=== PATIENT | female | born 1955 | race Caucasian/White ===

== ENCOUNTER → 2020-02-01 07:21 | Outpatient (CLI) | payer BC, SELFPAY ==
--- NOTE | ~2020-02-01 | MM_ITS ---
EXAMINATION: MM screening [facility] BI w dylan HISTORY: Screening mammogram TECHNIQUE: Craniocaudal and mediolateral oblique 3-D tomosynthesis images were obtained and synthetic 2-D images were generated. CAD analysis was submitted and interpreted. COMPARISON: 12/13/2018, 12/09/2017, 11/25/2016 BREAST PARENCHYMAL COMPOSITION: There are scattered areas of fibroglandular density. FINDINGS: There is no evidence of suspicious mass, calcification, or architectural distortion to sugg est malignancy in either breast. There has been no suspicious interval change. IMPRESSION: 1. No mammographic evidence of malignancy. 2. Recommend routine screening mammography in one year. BI-RADS Category 1: Negative Reviewed, dictated and finalized at location A. [employer]ATCH [employer]ER
== END ==
PROVIDERS: PCP Family Medicine; Visit Provider Obstetrics & Gynecology
DX: Z12.31 Encounter for screening mammogram for malignant neoplasm of breast (principal)
CPT/HCPCS: 77063; 77067

== ENCOUNTER 2020-10-03 13:00 | Emergency (ER) | payer BC, SELFPAY ==
--- NOTE | 2020-10-03 13:07 | ED.SKABFB ---
HPI - Skin/Abscess/Foreign Bdy General Chief complaint: Skin/Abscess/Foreign Body Stated complaint: poison chip Time Seen by Provider: 10/03/20 13:07 Source: patient and RN notes reviewed History of Present Illness HPI narrative: Patient 65-year-old female who presents the urgent care with complaints of poison chip to the left arm and neck. Patient states that she was doing yard work on Tuesday and it has been spreading since then. Patient has been using hydrocortisone and Benadryl without much relief. No other acute complaints. No acute distress noted. Patient aware of the plan of care. Some parts of this dictation were generated by voice recognition software and may contain typographical and/or grammatical inaccuracies. Related Data Allergies Allergy/AdvReac Type Severity Reaction Status Date / Time No Known Allergies Allergy Unverified 08/24/16 11:54 Review of Systems Review of Systems: Narrative: CONSTITUTIONAL: Denies fever, chills, or sweats. EYES: Denies visual changes, redness, or discharge. ENT: Denies rhinorrhea, congestion, sore throat, or otalgia. CARDIOVASCULAR: Denies chest pain, palpitations, or edema. RESPIRATORY: Denies cough or dyspnea. GASTROINTESTINAL: Denies abdominal pain, nausea, vomiting, or diarrhea. GENITOURINARY: Denies dysuria or hematuria. SKIN: Reports of itchy pruritic dermatitis to the left arm, right and left neck, and right face MUSCULOSKELETAL: Denies back pain, joint pain, or myalgia. NEUROLOGIC: Denies headache, numbness, or weakness. All other systems reviewed are negative, except as documented in HPI. PMFSH Comments At the time of my signature, I reviewed and agree with the nursing past medical, surgical, social, and family history. There is no relevant family history pertinent to the patient complaint. Exam Narrative: Exam Narrative: GENERAL: This is a well-nourished, well-developed patient, in no apparent distress. HEAD: normocephalic, atraumatic. EYES: PERRL. Sclera clear/white. Vision is grossly intact. EARS: External ears normal NOSE: External nose normal with no obvious nasal discharge, nares without redness, no rhinorrhea. THROAT: Mucous membranes moist NECK: Neck supple CARDIOVASCULAR: Regular rate and rhythm without murmurs, gallops, or rubs. RESPIRATORY: Clear to auscultation. Breath sounds equal bilaterally. No wheezes, rales, or rhonchi. SKIN: Pruritic vesicular erythemic dermatitis noted to the antecubital fossa of the left arm, lower left arm, right and left side of the neck, and right side of the face NEURO: awake, alert, and oriented to person, place and time. There were no obvious focal neurologic abnormalities. EXTREMITIES: No clubbing, cyanosis, or edema. Course Vital Signs Vital signs: Vital Signs Temperature 98.1 F 10/03/20 13:10 Pulse Rate 69 10/03/20 13:10 Respiratory Rate 18 10/03/20 13:10 Blood Pressure 132/68 10/03/20 13:10 Pulse Oximetry 99 10/03/20 13:10 Temperature 98.1 F 10/03/20 13:10 Pulse Rate 69 10/03/20 13:10 Respiratory Rate 18 10/03/20 13:10 Blood Pressure 132/68 10/03/20 13:10 Pulse Oximetry 99 10/03/20 13:10 Reviewed MDM - Skin/Abscess/Foreign Bdy MDM Narrative Medical decision making narrative: Advised the patient to complete oral steroid regimen as prescribed. Be sure to eat and drink with the medication. Use triamcinolone cream to the affected areas avoiding the groin, underarms and near the eyes. Continue to use the [id number] Benadryl as needed for itching. Obtain [id number] TecNu scrub daily in the shower. Follow-up with your PCP within 2 to 5 days or for worsening symptoms or failure to improve. Differential Diagnosis Differential diagnosis: Likely abscess of skin or subcutaneous tissue, cellulitis, eczema, insect bites and contact dermatitis Discharge Plan Discharge Clinical Impression: Rhus dermatitis Patient Disposition: Home, Self-Care Condition: Stable Instructio
[2020-10-03 13:10] VITALS: BP 132/68; PULSE 69; RESP 18; TEMP 36.7; O2SAT 99
[2020-10-03 13:44] VITALS: BP 132/68; PULSE 69; RESP 18; TEMP 36.7; O2SAT 99
== END 2020-10-03 13:25 | disposition home or self-care (01) ==
PROVIDERS: Emergency Provider Nurse Practitioner Family; PCP Family Medicine
DX: L23.7 Allergic contact dermatitis due to plants, except food (principal)
CPT/HCPCS: 99213; G0463

== ENCOUNTER 2022-03-06 09:17 | Emergency (ER) | payer BC, SELFPAY ==
--- NOTE | 2022-03-06 09:24 | ED.URI ---
HPI - URI/Sore Throat General Chief Complaint: Upper Respiratory Infection Stated Complaint: cold flu Time Seen by Provider: 03/06/22 09:24 Source: patient and RN notes reviewed History of Present Illness HPI Narrative: patient is a 66-year-old female who presents to urgent care with complaints of cold symptoms with cough and mild sore throat. Patient states she has been taking Robitussin and using Tylenol. Denies any fevers, nausea, vomiting. Patient states it started on got better yesterday and she feels worse this morning however has not taken anything for her symptoms in the last 24 hours. No other acute complaints. No acute distress noted. Patient aware of the plan of care. Some parts of this dictation were generated by voice recognition software and may contain typographical and/or grammatical inaccuracies. Related Data Allergies Allergy/AdvReac Type Severity Reaction Status Date / Time No Known Allergies Allergy Verified 03/06/22 09:32 Review of Systems Review of Systems: CONSTITUTIONAL: Denies fever, chills, or sweats. EYES: Denies visual changes, redness, or discharge. ENT: Denies rhinorrhea, congestion, sore throat, or otalgia. CARDIOVASCULAR: Denies chest pain, palpitations, or edema. RESPIRATORY: Denies cough or dyspnea. GASTROINTESTINAL: Denies abdominal pain, nausea, vomiting, or diarrhea. GENITOURINARY: Denies dysuria or hematuria. SKIN: Denies rash or itching. MUSCULOSKELETAL: Denies back pain, joint pain, or myalgia. NEUROLOGIC: Denies headache, numbness, or weakness. All other systems reviewed are negative, except as documented in HPI. PMFSH Comments At the time of my signature, I reviewed and agree with the nursing past medical, surgical, social, and family history. There is no relevant family history pertinent to the patient complaint. Exam Narrative: GENERAL: This is a well-nourished, well-developed patient, in no apparent distress. HEAD: normocephalic, atraumatic. EYES: PERRL. Sclera clear/white. Vision is grossly intact. EARS: External ears normal, auditory canals clear and without drainage, TMs normal without perforation. Hearing grossly intact. NOSE: External nose normal with no obvious nasal discharge. [id number] bilateral erythema nares with clear to yellow rhinorrhea THROAT: Mucous membranes moist, posterior pharynx clear. Moderate postnasal drainage NECK: Neck supple, non-tender without lymphadenopathy CARDIOVASCULAR: Regular rate and rhythm without murmurs, gallops, or rubs. RESPIRATORY: Clear to auscultation. Breath sounds equal bilaterally. No wheezes, rales, or rhonchi. SKIN: warm, intact with no suspicious lesions or rash, good texture and turgor. NEURO: awake, alert, and oriented to person, place and time. There were no obvious focal neurologic abnormalities. EXTREMITIES: No clubbing, cyanosis, or edema. Course Course Level of Care: Express Care Visit Vital Signs Vital signs: Vital Signs Temperature 99.5 F 03/06/22 09:25 Pulse Rate 75 03/06/22 09:25 Respiratory Rate 16 03/06/22 09:25 Blood Pressure 125/70 03/06/22 09:25 Pulse Oximetry 97 03/06/22 09:25 Oxygen Delivery Room Air 03/06/22 09:25 Temperature 99.5 F 03/06/22 09:25 Pulse Rate 75 03/06/22 09:25 Respiratory Rate 16 03/06/22 09:25 Blood Pressure 125/70 03/06/22 09:25 Pulse Oximetry 97 03/06/22 09:25 Oxygen Delivery Room Air 03/06/22 09:25 Reviewed MDM - URI/Sore Throat MDM Narrative Medical decision making narrative: advised patient to use a daily antihistamine such as Zyrtec or Claritin during the day and Benadryl prior to bedtime. Use the Tessalon Perles as needed for cough. Use a humidifier at night. Increase water intake and rest. Follow-up with your PCP within 2-5 days or for worsening symptoms or failure to improve. Differential Diagnosis Differential diagnosis: Likely upper respiratory infection, croup, otitis media, sinusitis, viral infecti
[2022-03-06 09:25] VITALS: BP 125/70; PULSE 75; RESP 16; TEMP 37.5; O2SAT 97
== END 2022-03-06 10:11 | disposition home or self-care (01) ==
PROVIDERS: Emergency Provider Nurse Practitioner Family; PCP Family Medicine
DX: J06.9 Acute upper respiratory infection, unspecified (principal)
CPT/HCPCS: 99213; G0463